=== PATIENT | male | born 1965 | race African-American/Black ===

== ENCOUNTER 2018-04-25 11:06 | Inpatient (IN) | payer OTHER ==
[2018-04-25 11:41] VITALS: BMI 26.1
--- NOTE | 2018-04-25 12:14 | HP ---
CIWA Score - CIWA Score Nausea/Vomitin Muscle Tremors: 2 Anxiety: 2 Agitation: 2 Paroxysmal Sweats: 1-Minimal Palms Moist Orientation: 0-Oriented Tacttile Disturbances: 1-Very Mild Itch/Numbness Auditory Disturbances: 1-Very Mild Visual Disturbances: 1-Very Mild Sensitivity Headache: 2-Mild CIWA-Ar Total Score: 14 Admission ROS BHS - HPI Chief Complaint: i need help to stop drinking alcohol,marijuana,k2 Allergies/Adverse Reactions: Allergies Allergy/AdvReac Type Severity Reaction Status Date / Time No Known Allergies Allergy Verified 04/25/18 11:53 History of Present Illness: this 53 years old male with alcohol,marijuana,k2,seeking detox,withdrawal symptom,last detox 2013 [place] syncope alcohol related gerd anxiety and depression nicotine dependence weight loss abrasion both knees frequent fall Exam Limitations: No Limitations - Ebola screening Have you traveled outside of the country in the last 21 days: No Have you had contact with anyone from an Ebola affected area: No Have you been sick,other than usual withdrawal symptoms: No Do you have a fever: No - Review of Systems Constitutional: Malaise, Night Sweats, Changes in sleep, Weakness, Unintentional Wgt. Loss EENT: reports: Nose Congestion Respiratory: reports: No Symptoms reported Cardiac: reports: No Symptoms Reported GI: reports: Nausea, Poor Appetite, Abdominal cramping : reports: No Symptoms Reported Musculoskeletal: reports: Back Pain, Muscle Pain Integumentary: reports: Dryness Neuro: reports: Headache, Tremors Endocrine: reports: No Symptoms Reported Hematology: reports: No Symptoms Reported Psychiatric: reports: No Sypmtoms Reported, Judgement Intact, Mood/Affect Appropiate, Depressed Other Systems: Reviewed and Negative Patient History - Patient Medical History Hx Anemia: No Hx Asthma: No Hx Chronic Obstructive Pulmonary Disease (COPD): No Hx Cancer: No Hx Cardiac Disorders: No Hx Congestive Heart Failure: No Hx Hypertension: No Hx Hypercholesterolemia: No Hx Pacemaker: No HX Cerebrovascular Accident: No Hx Seizures: No Hx Dementia: No Hx Diabetes: No Hx Gastrointestinal Disorders: Yes (Acid reflux) Hx Liver Disease: No Hx Genitourinary Disorders: No Hx Sexually Transmitted Disorders: No Hx Renal Disease (ESRD): No Hx Thyroid Disease: No Hx Human Immunodeficiency Virus (HIV): No (last 04/16/18) Hx Hepatitis C: No Hx Depression: Yes (anxiety) Hx Suicide Attempt: No Hx Bipolar Disorder: No Hx Schizophrenia: No Other Medical History: no suicidal,no homicidal - Patient Surgical History Past Surgical History: No - PPD History Previous Implant?: Yes Documented Results: Positive w/o proof Implanted On Prior [facility] Admission?: No PPD to be Administered?: No - Smoking Cessation Smoking history: Current every day smoker Have you smoked in the past 12 months: Yes Aproximately how many cigarettes per day: 10 Hx Chewing Tobacco Use: No Initiated information on smoking cessation: Yes 'Breaking Loose' booklet given: 04/25/18 - Substance & Tx. History Hx Alcohol Use: Yes Hx Substance Use: Yes Substance Use Type: Alcohol, Cocaine, Marijuana - Substances Abused Alcohol Route: Oral Frequency: Daily Amount used: 5 pints vodka Age of first use: 10 Date of Last Use: 04/24/18 Cocaine Route: Smoking Frequency: Daily Amount used: $40 Age of first use: 18 Date of Last Use: 04/24/18 Marijuana/Hashish Route: Smoking Frequency: Daily Amount used: 1 bag Age of first use: 10 Date of Last Use: 04/24/18 k2 Route: Smoking Frequency: Daily Amount used: 2-3 blunts Age of first use: 51 Date of Last Use: 04/24/18 Family Disease History - Family Disease History Family Disease History: CA: Brother (dsa,alcohol,bone ), Other: Mother (alcohol, sober), Brother Admission Physical Exam BHS - Vital Signs Vital Signs: Vital Signs - 24 hr 04/25/18 11:38 Temperature 96.4 F L Pulse Rate 76 Respiratory 20 Rate Blood Pressure 131/75 - Physical General Appearance: Yes: Moderate Distress, Tremorous, Irritable, Sweating, Anxious HEENTM: Yes: Normal ENT Inspection, BLESSING, Pharynx Normal Respiratory: Yes: Lungs Clear, Normal Breath Sounds, No Respiratory Distress Neck: Yes: Within Normal Limits, Supple, Trachea in good position Breast: Yes: Within Normal Limits Cardiology: Yes: Within Normal Limits, Regular Rate, S1, S2 Abdominal: Yes: Within Normal Limits, Normal Bowel Sounds, Non Tender, Soft Genitourinary: Yes: Within Normal Limits Musculoskeletal: Yes: Back pain, Muscle Pain Extremities: Yes: Tremors Neurological: Yes: back sewer II-XII NML intact, Alert, Motor Strength 5/5 Integumentary: Yes: Dry (abrasion both knees) Lymphatic: Yes: Within Normal Limits - Diagnostic (1) Alcohol dependence with uncomplicated withdrawal Current Visit: Yes Status: Acute (2) Cocaine dependence Current Visit: No Status: Acute (3) Cannabis dependence Current Visit: Yes Status: Acute (4) Syncope Current Visit: Yes Status: Acute (5) Frequent falls Current Visit: Yes Status: Acute (6) Abrasion Current Visit: Yes Status: Acute (7) Anxiety and depression Current Visit: Yes Status: Acute Cleared for Admission [facility] - Detox or Rehab [facility] Level of Care: Medically Managed Detox Regimen/Protocol: Librium [facility] Breath Alcohol Content Breath Alcohol Content: 0 Urine Drug Screen - Results Drug Screen Negative: No Urine Drug Screen Results: THC-Marijuana, TONY-Cocaine
[2018-04-25] MEDS ORDERED: MAG HYDROX/AL HYDROX/SIMETH 30 ML UNIT-DOSE CUP PO PRN (12:29)
[2018-04-25] MEDS ORDERED: NICOTINE POLACRILEX 2 MG GUM BUC PRN (12:29)
[2018-04-25] MEDS ORDERED: LOPERAMIDE HCL 2 MG CAPSULE PO PRN (12:29)
[2018-04-25] MEDS ORDERED: MAGNESIUM HYDROX 2400MG/30ML ORAL SUSPENSION 30 ML CUP PO PRN (12:29)
[2018-04-25] MEDS ORDERED: hydrOXYzine PAMOATE 25 MG CAPSULE (FP) PO PRN (12:29)
[2018-04-25] MEDS ORDERED: chlordiazePOXIDE HCL 25 MG CAPSULE PO PRN (12:29)
[2018-04-25] MEDS ORDERED: P-EPHED 60MG/TRIPROLIDI 2.5MG TABLET PO PRN (12:29)
[2018-04-25] MEDS ORDERED: guaiFENesin/D-METHORPHAN HB 10 ML UNIT-DOSE CUPS PO PRN (12:29)
[2018-04-25] MEDS ORDERED: ACETAMINOPHEN 325 MG TABLET (FP) PO PRN (12:29)
[2018-04-25] MEDS ORDERED: MAGNESIUM CITRATE 300 ML BOTTLE PO PRN (12:29)
[2018-04-25] MEDS ORDERED: MENTHOL/PHENOL 1 EACH UD MM PRN (12:29)
[2018-04-25] MEDS: NICOTINE 21 MG/24 HOURS TOPICAL PATCH TD SCH (13:35)
--- NOTE | 2018-04-25 15:38 | EKG ---
Test Reason : Blood Pressure : / mmHG Vent. Rate : 078 BPM Atrial Rate : 078 BPM P-R Int : 150 ms QRS Dur : 084 ms QT Int : 390 ms P-R-T Axes : 057 -48 044 degrees QTc Int : 444 ms SINUS RHYTHM WITH OCCASIONAL PREMATURE VENTRICULAR COMPLEXES LEFT ANTERIOR FASCICULAR BLOCK ABNORMAL ECG NO PREVIOUS ECGS AVAILABLE Confirmed by ELISA WAY MD ([id number]) on 04/25/2018 3:37:45 PM Referred By: Confirmed By:ELISA WAY MD
[2018-04-25] MEDS: chlordiazePOXIDE HCL 25 MG CAPSULE PO SCH ×2 (17:05→22:59)
[2018-04-25 19:29] LABS: URINE APPEARANCE CLEAR; URINE BILIRUBIN NEGATIVE (<2.0 mg/dL); URINE COLOR DKYELLOW; URINE GLUCOSE (UA) NEGATIVE (NEGATIVE); URINE KETONE NEGATIVE (NEGATIVE); URINE LEUK ESTERASE NEGATIVE (NEGATIVE); URINE NITRITE NEGATIVE (NEGATIVE); URINE PROTEIN 1+ (NEGATIVE); URINE UROBILINOGEN 4.0 E.U/dl mg/dL (0.2-1.0)
[2018-04-25 19:30] LABS: EPI CELLS RARE /HPF (FEW); URINE MUCUS MANY
[2018-04-25] MEDS: IBUPROFEN 400 MG TABLET (FP) PO PRN (20:34)
[2018-04-25] MEDS ORDERED: MELATONIN 5 MG TABLETS PO PRN (22:00)
[2018-04-25] MEDS: THIAMINE HCL 100 MG TABLET (FP) PO SCH (22:59)
[2018-04-26] MEDS: chlordiazePOXIDE HCL 25 MG CAPSULE PO SCH ×4 (05:43→22:32)
[2018-04-26] MEDS ORDERED: ALBUTEROL SO4 2.5/IPRATROPIUM 0.5 INH SOL 3 ML VIAL.NEB. NEB ONE (07:00)
[2018-04-26] MEDS ORDERED: BACITRACIN 0.9 GM PACKET TP SCH (10:00)
[2018-04-26] MEDS ORDERED: PANTOPRAZOLE 20 MG TABLET (FP) PO SCH (10:00)
[2018-04-26] MEDS ORDERED: PRENATAL VITAMINS W/ FOLIC ACID TABLET (FP) PO SCH (10:00)
[2018-04-26 10:22] LABS: ALBUMIN 3.8 g/dl (3.4-5.0); ALK PHOS 98 U/L (45-117); ANION GAP 5 MMOL/L (8-16); BILIRUBIN,TOTAL 0.4 mg/dL (0.2-1); BLOOD UREA NITROGEN 10 mg/dL (7-18); CALCIUM 9.9 mg/dL (8.5-10.1); CHLORIDE 108 mmol/L (98-107); CO2 28 mmol/L (21-32); GLUCOSE,RANDOM 124 mg/dL (74-106); POTASSIUM 4.2 mmol/L (3.5-5.1); SGOT/AST 44 U/L (15-37); SGPT/ALT 46 U/L (13-61); SODIUM 141 mmol/L (136-145); TOT PROT 7.7 g/dl (6.4-8.2)
[2018-04-26 10:25] LABS: HEMATOCRIT 41.8 % (35.4-49); HEMOGLOBIN 12.9 GM/dL (11.7-16.9); MCH 22.9 pg (25.7-33.7); MCHC 30.8 g/dl (32.0-35.9); MEAN CELL VOLUME 74.5 fl (80-96); MEAN PLT VOLUME 9.6 fl (7.5-11.1); PLATELET COUNT 340 K/MM3 (134-434); RBC 5.61 M/mm3 (4.00-5.60); RDW 17.8 % (11.9-15.9)
[2018-04-26] MEDS: NICOTINE 21 MG/24 HOURS TOPICAL PATCH TD SCH (10:50)
--- NOTE | 2018-04-26 14:46 | PN ---
[facility] CIWA - CIWA Score Nausea/Vomitin Muscle Tremors: 4-Moderate,w/Arms Extend Anxiety: 4-Mod. Anxious/Guarded Agitation: 4-Moderately Restless Paroxysmal Sweats: 3 Orientation: 0-Oriented Tacttile Disturbances: 0-None Auditory Disturbances: 0-None Visual Disturbances: 0-None Headache: 0-None Present CIWA-Ar Total Score: 17 BHS Progress Note (SOAP) Subjective: Dry mouth, nasal stuffiness, body ache, interrupted sleep Objective: 04/26/18 14:42 Last Vital Signs Temp Pulse Resp BP Pulse Ox 97.9 F 60 17 124/78 04/26/18 09:43 04/26/18 09:43 04/26/18 09:43 04/26/18 09:43 Laboratory Tests 04/25/18 04/26/18 04/26/18 14:10 06:00 06:00 WBC 7.0 RBC 5.61 H Hgb 12.9 Hct 41.8 MCV 74.5 L MCH 22.9 L MCHC 30.8 L RDW 17.8 H Plt Count 340 MPV 9.6 Sodium 141 Potassium 4.2 Chloride 108 H Carbon Dioxide 28 Anion Gap 5 L BUN 10 Creatinine 1.0 Creat Clearance w eGFR > 60 Random Glucose 124 H Calcium 9.9 Total Bilirubin 0.4 AST 44 H ALT 46 Alkaline Phosphatase 98 Total Protein 7.7 Albumin 3.8 Urine Color Dkyellow Urine Appearance Clear Urine pH 5.0 Ur Specific [place] 1.030 Urine Protein 1+ H Urine Glucose (UA) Negative Urine Ketones Negative Urine Blood Negative Urine Nitrite Negative Urine Bilirubin Negative Urine Urobilinogen 4.0 e.u/dl Ur Leukocyte Esterase Negative Urine WBC (Auto) 2 Urine RBC (Auto) 1 Ur Epithelial Cells Rare Urine Mucus Many RPR Titer 04/26/18 06:00 WBC RBC Hgb Hct MCV MCH MCHC RDW Plt Count MPV Sodium Potassium Chloride Carbon Dioxide Anion Gap BUN Creatinine Creat Clearance w eGFR Random Glucose Calcium Total Bilirubin AST ALT Alkaline Phosphatase Total Protein Albumin Urine Color Urine Appearance Urine pH Ur Specific [place] Urine Protein Urine Glucose (UA) Urine Ketones Urine Blood Urine Nitrite Urine Bilirubin Urine Urobilinogen Ur Leukocyte Esterase Urine WBC (Auto) Urine RBC (Auto) Ur Epithelial Cells Urine Mucus RPR Titer Nonreactive Labs reviewed: abnormal UA Assessment: 04/26/18 14:44 Withdrawal symptoms Noted with abnormal UA Plan: Continue detox Abnormal UA: encouraged PO water intake, repeat UA
[2018-04-26] MEDS: IBUPROFEN 400 MG TABLET (FP) PO PRN (15:53)
--- NOTE | 2018-04-26 16:10 | CONSULT ---
[facility] Psychiatric Consult - Data Date of interview: 04/26/18 Admission source: [facility] Identifying data: First admission to [facility] for this 53 y/o AA male, seeking detoxification treatment. Substances of abuse : cannabis (K2),alcohol,cocaine and nicotine. Patient is single without dependents,domiciled,unemployed and supported by relatives. Substance Abuse History: Discussed with the patient in this interview. Mr Luis admits to an enduring history of substance use disorder as depicted in current [facility] report drawn on admission. Details as folows : Smoking history: Current every day smoker. Have you smoked in the past 12 months: Yes. Aproximately how many cigarettes per day: 10. Hx Chewing Tobacco Use: No. Initiated information on smoking cessation: Yes. 'Breaking Loose' booklet given : 04/25/18. - Substance & Tx. History. Hx Alcohol Use: Yes. Hx Substance Use : Yes. Substance Use Type: Alcohol, Cocaine, Marijuana. - Substances Abused. Alcohol. Route: Oral. Frequency: Daily. Amount used: 5 pints vodka. Age of first use: 10. Date of Last Use: 04/24/18. Cocaine. Route: Smoking. Frequency: Daily. Amount used: $40. Age of first use: 18. Date of Last Use: 04/24/18. Marijuana/Hashish. Route: Smoking. Frequency: Daily. Amount used: 1 bag. Age of first use: 10. Date of Last Use: 04/24/18. k2. Route : Smoking. Frequency: Daily. Amount used: 2-3 blunts. Age of first use: 51. Date of Last Use: 04/24/18 Medical History: GERD and chronic lumbar pain. Otherwise, the patient endorses good general health. Psychiatric History: Patient denies. Physical/Sexual Abuse/Trauma History: Patient denies. Additional Comment: Urine Drug Screen Results: THC-Marijuana, TONY-Cocaine.Noted. Mental Status Exam - Mental Status Exam Alert and Oriented to: Time, Place, Person Cognitive Function: Good Patient Appearance: Well Groomed Mood: Hopeful, Euthymic Affect: Appropriate, Normal Range Patient Behavior: Cooperative Speech Pattern: Clear Voice Loudness: Normal Thought Process: Intact, Goal Oriented Thought Disorder: Not Present Hallucinations: Denies Suicidal Ideation: Denies Homicidal Ideation: Denies Insight/Judgement: Poor Sleep: Well Appetite: Good Muscle strength/Tone: Normal Gait/Station: Normal Psychiatric Findings - Problem List ([place] 1, 2,3) (1) Alcohol dependence with uncomplicated withdrawal Current Visit: Yes Status: Acute (2) Cannabis dependence Current Visit: Yes Status: Acute (3) Cocaine dependence Current Visit: Yes Status: Acute (4) Nicotine dependence Current Visit: Yes Status: Acute - Initial Treatment Plan Initial Treatment Plan: Psychoeducation.Sleep hygiene. Detoxification in progress.Support, group + cognitive theraapy.Observation.
[2018-04-26] MEDS: THIAMINE HCL 100 MG TABLET (FP) PO SCH (22:31)
[2018-04-27] MEDS: chlordiazePOXIDE HCL 25 MG CAPSULE PO SCH (06:24)
[2018-04-27 06:43] VITALS: BP 117/76; PULSE 81; TEMP 97.6
[2018-04-27 10:45] LABS: URINE APPEARANCE CLEAR; URINE BILIRUBIN NEGATIVE (<2.0 mg/dL); URINE COLOR LTYELLOW; URINE GLUCOSE (UA) NEGATIVE (NEGATIVE); URINE KETONE NEGATIVE (NEGATIVE); URINE LEUK ESTERASE NEGATIVE (NEGATIVE); URINE NITRITE NEGATIVE (NEGATIVE); URINE PROTEIN NEGATIVE (NEGATIVE); URINE UROBILINOGEN NEGATIVE mg/dL (0.2-1.0)
--- NOTE | 2018-04-27 14:03 | DS ---
[facility] Detox Discharge Summary Admission Date: 04/25/18 Discharge Date: 04/27/18 - History Present History: Alcohol Dependence - Physical Exam Results Vital Signs: Vital Signs Temperature 97.6 F 04/27/18 06:42 Pulse Rate 81 04/27/18 06:42 Respiratory Rate 18 04/27/18 06:42 Blood Pressure 117/76 04/27/18 06:42 O2 Sat by Pulse Oximetry (%) Pertinent Admission Physical Exam Findings: PATIENT REQUESTED TO SIGN OUT AMA STATING HE HAS A FAMILY EVENT TO ATTEND. PATIENT ENCOURAGED TO COMPLETE DETOX AND EXPLAINED RISK FACTORS OF RELAPSE AND WITH SIGNING OUT AMA. PATIENT REFUSED TO STAY IN DETOX. PATIENT ADVISED TO ATTEND GROUP MEETINGS TO PREVENT RELAPSE AND TO SEEK MEDICAL ATTENTION IF WITHDRAWAL SX OCCUR. - Medication Discharge Medications: Ambulatory Orders Omeprazole Magnesium [Prilosec Otc] 20 mg PO DAILY 04/25/18 - AMA Did Patient Leave Against Medical Advice: Yes
[2018-04-27] MEDS ORDERED: chlordiazePOXIDE 5 MG CAPSULE PO SCH (17:00)
[2018-04-28] MEDS ORDERED: chlordiazePOXIDE HCL 10 MG CAPSULE PO SCH (17:00)
== END 2018-04-27 10:04 | disposition left against medical advice (07) | DRG 770 ==
LOC: YASAS 11:06 → Y3N 12:35
PROC: HZ2ZZZZ Detoxification Services for Substance Abuse Treatment (ICD-10-PCS; principal; 2018-04-25)
DX: F10.230 Alcohol dependence with withdrawal, uncomplicated (principal); F14.20 Cocaine dependence, uncomplicated; F17.210 Nicotine dependence, cigarettes, uncomplicated; F19.280 Other psychoactive substance dependence with psychoactive substance-induced anxiety disorder; F41.8 Other specified anxiety disorders; F32.9 Major depressive disorder, single episode, unspecified; K21.9 Gastro-esophageal reflux disease without esophagitis; R76.11 Nonspecific reaction to tuberculin skin test without active tuberculosis; R82.90 Unspecified abnormal findings in urine; R55 Syncope and collapse; S80.212A Abrasion, left knee, initial encounter; S80.211A Abrasion, right knee, initial encounter; Z91.81 History of falling
CPT/HCPCS: 36415; 71046-TC-FY; 80053; 81003; 81015; 85027; 86593; 93005; 93010

== ENCOUNTER 2019-03-07 13:29 | Inpatient (IN) | payer OTHER ==
[2019-03-07 14:24] VITALS: BMI 25.0
--- NOTE | 2019-03-07 16:59 | HP ---
CIWA Score Nausea/Vomitin Muscle Tremors: 4-Moderate,w/Arms Extend Anxiety: 2 Agitation: 1-Slight > Activity Paroxysmal Sweats: 1-Minimal Palms Moist Orientation: 0-Oriented Tacttile Disturbances: 0-None Auditory Disturbances: 0-None Visual Disturbances: 0-None Headache: 2-Mild CIWA-Ar Total Score: 13 - Admission Criteria [facility] Guidelines: Admission for Medically Managed Detox: Requires at least one of the followin. CIWA greater than 12 2. Seizures within the past 24 hours 3. Delirium tremens within the past 24 hours 4. Hallucinations within the past 24 hours 5. Acute intervention needed for co occurring medical disorder 6. Acute intervention needed for co occurring psychiatric disorder 7. Severe withdrawal that cannot be handled at a lower level of care (continued vomiting, continued diarrhea, abnormal vital signs) requiring intravenous medication and/or fluids 8. Admission ROS [facility] Chief Complaint: detox EtOH, K2, cocaine Allergies/Adverse Reactions: Allergies Allergy/AdvReac Type Severity Reaction Status Date / Time No Known Allergies Allergy Verified 03/07/19 14:17 History of Present Illness: 53M w/ chronic intermittently BLE edema presenting for detox for EtOH, K2, crack. Last drank a bottle of vodka and a few beers at ~2300 last night. Drinks 4pints + 6pack daily. Started drinking at 11y/o. H/o seizures x3, a few years prior. Blacked outed x10-15. Had CTH([place]) neg a few weeks prior. Denies cirrhosis. Had bloody emesis w/ coffee grounds 1week ago, evaluated at [place] who recommended outpt EGD and colonscopy. Had scleral icterus a few years prior. Smokes K2/MJ [id number] daily. Smokes $70crack, 3x/week. Denies IVDU. [place], [place] [address] [place] 10-15cig daily. Imprisoned a couple years prior for drug-related charges. No h/o methadone or suboxone detox programs. - Ebola screening Have you traveled outside of the country in the last 21 days: No (N) Have you had contact with anyone from an Ebola affected area: No Do you have a fever: No - Review of Systems EENT: denies: Blurred Vision, Double Vision, Nose Congestion Respiratory: denies: Cough, Orthopnea, Shortness of Breath Cardiac: reports: Edema (chronic BLE edema). denies: Chest Pain, Irregular Heart Rate, Chest Tightness GI: reports: Nausea, Rectal Bleeding (some blood on feces), Vomiting. denies: Constipated, Diarrhea : denies: Burning, Frequency, Urgency Musculoskeletal: denies: Back Pain Integumentary: denies: Dryness, Erythema, Pruritus Neuro: reports: Headache, Seizure (h/o). denies: Numbness, Tingling, Dizziness Endocrine: denies: Flushing, Increased Urine Psychiatric: reports: Orientated x3 Patient History - Patient Medical History Hx Anemia: No Hx Asthma: No Hx Chronic Obstructive Pulmonary Disease (COPD): No Hx Cancer: No Hx Cardiac Disorders: No Hx Congestive Heart Failure: No Hx Hypertension: No Hx Hypercholesterolemia: No Hx Pacemaker: No HX Cerebrovascular Accident: No Hx Seizures: No Hx Dementia: No Hx Diabetes: No Hx Gastrointestinal Disorders: Yes (Acid reflux) Hx Liver Disease: No Hx Genitourinary Disorders: No Hx Sexually Transmitted Disorders: No Hx Renal Disease (ESRD): No Hx Thyroid Disease: No Hx Human Immunodeficiency Virus (HIV): No (last 04/16/18) Hx Hepatitis C: No Hx Depression: Yes (anxiety) Hx Suicide Attempt: No Hx Bipolar Disorder: No Hx Schizophrenia: No - Patient Surgical History Past Surgical History: No - Smoking Cessation Smoking history: Current every day smoker Have you smoked in the past 12 months: Yes Aproximately how many cigarettes per day: 10 Hx Chewing Tobacco Use: No Initiated information on smoking cessation: No - Substance & Tx. History Hx Alcohol Use: Yes Hx Substance Use: Yes Substance Use Type: Alcohol, Cocaine, Marijuana - Substances abused Alcohol Substance route: Oral Frequency: Daily Amount used: 4 BOTTLES OF VODKA, Age of first use: 10 Date of last use: 03/07/19 Cocaine Substance route: Smoking Frequency: 3-6 times per week Amount used: $70 Age of first use: 23 Date of last use: 03/05/19 K2/Spice Substance route: Smoking Frequency: Daily Amount used: 10 BLUNTS Age of first use: 48 Date of last use: 03/07/19 Family Disease History - Family Disease History Family Disease History: CA: Brother (dsa,alcohol,bone, cirrhossis), Other: Mother (alcohol,sober), Brother Admission Physical Exam [facility] - Vital Signs Vital Signs: Vital Signs - 24 hr 03/07/19 14:16 Temperature 97.6 F Pulse Rate 80 Respiratory 20 Rate Blood Pressure 115/76 - Physical General Appearance: Yes: Tremorous, Irritable, Anxious. No: No Apparent Distress HEENTM: Yes: Normocephalic. No: Pale Conjunctivae R, Pale Conjunctivae L, Scleral Ictenus R, Scleral Ictenus L Respiratory: Yes: Chest Non-Tender, Lungs Clear, No Accessory Muscle Use. No: Decreased Breath Sounds, Accessory Muscle Use, Stridor, Wheezing, Expiration Neck: Yes: Supple, Trachea in good position Cardiology: Yes: Regular Rhythm, Regular Rate. No: Irregularly Irregular Abdominal: Yes: Non Tender, Soft. No: Distended, Guarding, Rebound, Tenderness Extremities: Yes: Swelling (1+pitting edema to knees B/L) Neurological: Yes: Fully Oriented, Alert Integumentary: Yes: Dry, Warm Cleared for Admission [facility] - Detox or Rehab [facility] Level of Care: Medically Managed Breathalyzer - Breathalyzer Breathalyzer: 0 Urine Drug Screen - Test Device Lot number: [id number] Expiration date: 12/06/20 - Control Is test valid?: Yes - Results Drug screen NEGATIVE: No Urine drug screen results: THC-Marijuana, TONY-Cocaine Inpatient Rehab Admission - Rehab Decision to Admit Inpatient rehab admission?: No
[2019-03-07] MEDS ORDERED: hydrOXYzine PAMOATE 25 MG CAPSULE (FP) PO PRN (17:25)
[2019-03-07] MEDS ORDERED: BISMUTH SUBSALICYLATE 524 MG/30 ML UD PO PRN (17:25)
[2019-03-07] MEDS ORDERED: MELATONIN 5 MG TABLETS PO PRN (17:25)
[2019-03-07] MEDS ORDERED: MENTHOL/PHENOL 1 EACH UD MM PRN (17:25)
[2019-03-07] MEDS ORDERED: MAGNESIUM CITRATE 300 ML BOTTLE PO PRN (17:25)
[2019-03-07] MEDS ORDERED: ACETAMINOPHEN 325 MG TABLET (FP) PO PRN ×2 (17:25)
[2019-03-07] MEDS ORDERED: MAG HYDROX/AL HYDROX/SIMETH 30 ML UNIT-DOSE CUP PO PRN (17:25)
[2019-03-07] MEDS ORDERED: MAGNESIUM HYDROX 2400MG/30ML ORAL SUSPENSION 30 ML CUP PO PRN (17:25)
[2019-03-07] MEDS ORDERED: NICOTINE POLACRILEX 2 MG GUM BUC PRN (17:25)
[2019-03-07] MEDS ORDERED: IBUPROFEN 400 MG TABLET (FP) PO PRN (17:25)
--- NOTE | 2019-03-07 17:25 | PN ---
Teaching Attending Note Name of Resident: Senthil Fung ATTENDING PHYSICIAN STATEMENT I saw and evaluated the patient. I reviewed the resident's note and discussed the case with the resident. I agree with the resident's findings and plan as documented. SUBJECTIVE: pt here requesting detox from etoh use , reports 4 pints & 1-x 6pk /day x 20 years , longest sobriety 2 years while incarcerated 2005 , latest use yesterday , current syymptoms nausea , tremors , headache , abd cramps , anxiety , mild UE tremors . + blackouts , + w/d seizures , + hematemesis evaluated 1 week ago @ [place] , denies other episodes since , reports some red blood in stool yesterday , was recommeded @ [place] to go for outpt EGD / colonoscopy which pt is reporting he is planning to attend. cannabis : K2/MJ [id number] daily. Smokes $70 crack cocaine 3x/week. Denies IVDU. denies heroin , denies other illicits . SHX : parole until April 2019 drug-related charges , homeless , unemployed , utox : thc, jose l PMHX : LE cellulitis ( chronic ) , denies PSHX / Psych hx . OBJECTIVE: CIWA 13 , moderate distress , jayden LE edema =1 pitting L > R . Vital Signs - 24 hr 03/07/19 14:16 Temperature 97.6 F Pulse Rate 80 Respiratory 20 Rate Blood Pressure 115/76 ASSESSMENT AND PLAN: AUD - Librium detox protocol . Problem List - Problems (1) Alcohol dependence with uncomplicated withdrawal Code(s): F10.230 - ALCOHOL DEPENDENCE WITH WITHDRAWAL, UNCOMPLICATED (2) Cannabis dependence Code(s): F12.20 - CANNABIS DEPENDENCE, UNCOMPLICATED (3) Cocaine dependence Code(s): F14.20 - COCAINE DEPENDENCE, UNCOMPLICATED Qualifiers: Substance use status: uncomplicated Qualified Code(s): F14.20 - Cocaine dependence, uncomplicated (4) Nicotine dependence Code(s): F17.200 - NICOTINE DEPENDENCE, UNSPECIFIED, UNCOMPLICATED Qualifiers: Nicotine product type: cigarettes
[2019-03-07] MEDS ORDERED: chlordiazePOXIDE HCL 25 MG CAPSULE PO PRN (17:27)
[2019-03-07] MEDS: PANTOPRAZOLE 20 MG TABLET (FP) PO SCH (18:12)
[2019-03-07] MEDS ORDERED: chlordiazePOXIDE HCL 25 MG CAPSULE PO ONE (18:15)
[2019-03-07] MEDS: chlordiazePOXIDE HCL 25 MG CAPSULE PO SCH (22:28)
[2019-03-07] MEDS: THIAMINE HCL 100 MG TABLET (FP) PO SCH (22:28)
[2019-03-08] MEDS: chlordiazePOXIDE HCL 25 MG CAPSULE PO SCH ×4 (06:05→22:27)
[2019-03-08 09:27] LABS: ALBUMIN 3.1 g/dl (3.4-5.0); BILIRUBIN,TOTAL 0.3 mg/dL (0.2-1); BLOOD UREA NITROGEN 6.2 mg/dL (7-18); CREATININE 0.8 mg/dL (0.55-1.3); POTASSIUM 4.2 mmol/L (3.5-5.1); TOT PROT 6.4 g/dl (6.4-8.2)
[2019-03-08 09:33] LABS: HEMATOCRIT 36.8 % (35.4-49); HEMOGLOBIN 11.7 GM/dL (11.7-16.9); MCH 23.6 pg (25.7-33.7); MCHC 31.7 g/dl (32.0-35.9); MEAN CELL VOLUME 74.6 fl (80-96); MEAN PLT VOLUME 9.4 fl (7.5-11.1); PLATELET COUNT 379 K/MM3 (134-434); RBC 4.94 M/mm3 (4.00-5.60); RDW 18.6 % (11.9-15.9); WHITE BLOOD COUNT 4.8 K/mm3 (4.0-10.0)
[2019-03-08] MEDS: PRENATAL VITAMINS W/ FOLIC ACID TABLET (FP) PO SCH (10:12)
[2019-03-08] MEDS: PANTOPRAZOLE 20 MG TABLET (FP) PO SCH (10:12)
--- NOTE | 2019-03-08 15:16 | PN ---
S CIWA - CIWA Score Nausea/Vomitin-No Nausea/No Vomiting Muscle Tremors: 4-Moderate,w/Arms Extend Anxiety: 4-Mod. Anxious/Guarded Agitation: 3 Paroxysmal Sweats: 1-Minimal Palms Moist Orientation: 0-Oriented Tacttile Disturbances: 0-None Auditory Disturbances: 0-None Visual Disturbances: 0-None Headache: 0-None Present CIWA-Ar Total Score: 12 [facility] Progress Note (SOAP) Subjective: Pt with hx of alcohol and crack dependence on librium detox taper. C/o anxiety, slight tremors,chills and intermittent sleep. Objective: 03/08/19 15:15 Vital Signs - 24 hr 03/07/19 03/08/19 03/08/19 18:11 00:30 03:30 Temperature 97.3 F L Pulse Rate 65 Respiratory 18 18 18 Rate Blood Pressure 136/82 03/08/19 03/08/19 03/08/19 06:05 09:07 13:03 Temperature 99 F 98.2 F 98.3 F Pulse Rate 64 68 62 Respiratory 16 18 18 Rate Blood Pressure 124/77 119/70 122/80 03/08/19 13:14 Temperature 98.3 F Pulse Rate 62 Respiratory 18 Rate Blood Pressure 122/80 Laboratory Tests 03/08/19 03/08/19 03/08/19 07:30 07:30 07:30 WBC 4.8 RBC 4.94 Hgb 11.7 Hct 36.8 MCV 74.6 L MCH 23.6 L MCHC 31.7 L RDW 18.6 H Plt Count 379 MPV 9.4 Sodium 141 Potassium 4.2 Chloride 109 H Carbon Dioxide 28 Anion Gap 4 L BUN 6.2 L Creatinine 0.8 Est GFR (CKD-EPI)AfAm 116.56 Est GFR (CKD-EPI)NonAf 100.57 Random Glucose 90 Calcium 9.0 Total Bilirubin 0.3 AST 14 L ALT 18 Alkaline Phosphatase 83 Total Protein 6.4 Albumin 3.1 L RPR Titer Nonreactive Assessment: 03/08/19 15:15 withdrawal sx Plan: continue detox librium taper increase po fluids
[2019-03-08] MEDS: THIAMINE HCL 100 MG TABLET (FP) PO SCH (22:27)
[2019-03-09] MEDS: chlordiazePOXIDE HCL 25 MG CAPSULE PO SCH ×4 (05:19→23:11)
[2019-03-09] MEDS: PRENATAL VITAMINS W/ FOLIC ACID TABLET (FP) PO SCH (10:12)
[2019-03-09] MEDS: PANTOPRAZOLE 20 MG TABLET (FP) PO SCH (10:13)
--- NOTE | 2019-03-09 11:11 | PN ---
[facility] CIWA - CIWA Score Nausea/Vomitin-No Nausea/No Vomiting Muscle Tremors: 3 Anxiety: 3 Agitation: 3 Paroxysmal Sweats: 2 Orientation: 0-Oriented Tacttile Disturbances: 0-None Auditory Disturbances: 0-None Visual Disturbances: 0-None Headache: 0-None Present CIWA-Ar Total Score: 11 [facility] Progress Note (SOAP) Subjective: 53 years old male second patient [facility] admission since 2018 was admitted on 03/07/19 for acute alcohol withdrawal sx management doing well with librium detox regimen sweat chill back pain long history of GERD discontinue motrin increase protonix to 40 mg po daily one libirum 25 mg po x 1 at 2pm today Objective: 03/09/19 11:17 Vital Signs Temperature 97.8 F 03/09/19 09:39 Pulse Rate 70 03/09/19 09:39 Respiratory Rate 18 03/09/19 09:39 Blood Pressure 150/99 03/09/19 09:39 O2 Sat by Pulse Oximetry (%) Laboratory Last Values WBC 4.8 K/mm3 (4.0-10.0) 03/08/19 07:30 RBC 4.94 M/mm3 (4.00-5.60) 03/08/19 07:30 Hgb 11.7 GM/dL (11.7-16.9) 03/08/19 07:30 Hct 36.8 % (35.4-49) 03/08/19 07:30 MCV 74.6 fl (80-96) L 03/08/19 07:30 MCH 23.6 pg (25.7-33.7) L 03/08/19 07:30 MCHC 31.7 g/dl (32.0-35.9) L 03/08/19 07:30 RDW 18.6 % (11.9-15.9) H 03/08/19 07:30 Plt Count 379 K/MM3 (134-434) 03/08/19 07:30 MPV 9.4 fl (7.5-11.1) 03/08/19 07:30 Sodium 141 mmol/L (136-145) 03/08/19 07:30 Potassium 4.2 mmol/L (3.5-5.1) 03/08/19 07:30 Chloride 109 mmol/L (98-107) H 03/08/19 07:30 Carbon Dioxide 28 mmol/L (21-32) 03/08/19 07:30 Anion Gap 4 MMOL/L (8-16) L 03/08/19 07:30 BUN 6.2 mg/dL (7-18) L 03/08/19 07:30 Creatinine 0.8 mg/dL (0.55-1.3) 03/08/19 07:30 Est GFR (CKD-EPI)AfAm 116.56 03/08/19 07:30 Est GFR (CKD-EPI)NonAf 100.57 03/08/19 07:30 Random Glucose 90 mg/dL (74-106) 03/08/19 07:30 Calcium 9.0 mg/dL (8.5-10.1) 03/08/19 07:30 Total Bilirubin 0.3 mg/dL (0.2-1) 03/08/19 07:30 AST 14 U/L (15-37) L 03/08/19 07:30 ALT 18 U/L (13-61) 03/08/19 07:30 Alkaline Phosphatase 83 U/L (45-117) 03/08/19 07:30 Total Protein 6.4 g/dl (6.4-8.2) 03/08/19 07:30 Albumin 3.1 g/dl (3.4-5.0) L 03/08/19 07:30 RPR Titer Nonreactive (NONREACTIVE) 03/08/19 07:30 lab noted Assessment: 03/09/19 11:17 alcohol withdrawal sx alert oriented x 3 speech clearly steady gait tolerate food and fluid better today Plan: continue libirum detox regimen
[2019-03-09] MEDS ORDERED: PANTOPRAZOLE 40 MG TABLET (FP) PO SCH (11:14)
[2019-03-09] MEDS ORDERED: chlordiazePOXIDE HCL 25 MG CAPSULE PO ONE (14:00)
[2019-03-09] MEDS: THIAMINE HCL 100 MG TABLET (FP) PO SCH (23:11)
[2019-03-10] MEDS ORDERED: chlordiazePOXIDE HCL 10 MG CAPSULE PO PRN
[2019-03-10] MEDS: chlordiazePOXIDE HCL 10 MG CAPSULE PO SCH ×4 (05:58→22:16)
[2019-03-10] MEDS: PRENATAL VITAMINS W/ FOLIC ACID TABLET (FP) PO SCH (10:05)
--- NOTE | 2019-03-10 10:13 | PN ---
S CIWA - CIWA Score Nausea/Vomitin-No Nausea/No Vomiting Muscle Tremors: 3 Anxiety: 2 Agitation: 2 Paroxysmal Sweats: 2 Orientation: 0-Oriented Tacttile Disturbances: 1-Very Mild Itch/Numbness Auditory Disturbances: 0-None Visual Disturbances: 0-None Headache: 0-None Present CIWA-Ar Total Score: 10 S Progress Note (SOAP) Subjective: 53 years old male admitted on 03/07/19 for alcohol withdrawal sx management doing well with libirum detox regimen long history of psoriasis treated with over the counter cream at home begin eucerin cream Objective: 03/10/19 10:11 Vital Signs Temperature 98.5 F 03/10/19 09:05 Pulse Rate 59 L 03/10/19 09:05 Respiratory Rate 18 03/10/19 09:05 Blood Pressure 124/81 03/10/19 09:05 O2 Sat by Pulse Oximetry (%) Laboratory Last Values WBC 4.8 K/mm3 (4.0-10.0) 03/08/19 07:30 RBC 4.94 M/mm3 (4.00-5.60) 03/08/19 07:30 Hgb 11.7 GM/dL (11.7-16.9) 03/08/19 07:30 Hct 36.8 % (35.4-49) 03/08/19 07:30 MCV 74.6 fl (80-96) L 03/08/19 07:30 MCH 23.6 pg (25.7-33.7) L 03/08/19 07:30 MCHC 31.7 g/dl (32.0-35.9) L 03/08/19 07:30 RDW 18.6 % (11.9-15.9) H 03/08/19 07:30 Plt Count 379 K/MM3 (134-434) 03/08/19 07:30 MPV 9.4 fl (7.5-11.1) 03/08/19 07:30 Sodium 141 mmol/L (136-145) 03/08/19 07:30 Potassium 4.2 mmol/L (3.5-5.1) 03/08/19 07:30 Chloride 109 mmol/L (98-107) H 03/08/19 07:30 Carbon Dioxide 28 mmol/L (21-32) 03/08/19 07:30 Anion Gap 4 MMOL/L (8-16) L 03/08/19 07:30 BUN 6.2 mg/dL (7-18) L 03/08/19 07:30 Creatinine 0.8 mg/dL (0.55-1.3) 03/08/19 07:30 Est GFR (CKD-EPI)AfAm 116.56 03/08/19 07:30 Est GFR (CKD-EPI)NonAf 100.57 03/08/19 07:30 Random Glucose 90 mg/dL (74-106) 03/08/19 07:30 Calcium 9.0 mg/dL (8.5-10.1) 03/08/19 07:30 Total Bilirubin 0.3 mg/dL (0.2-1) 03/08/19 07:30 AST 14 U/L (15-37) L 03/08/19 07:30 ALT 18 U/L (13-61) 03/08/19 07:30 Alkaline Phosphatase 83 U/L (45-117) 03/08/19 07:30 Total Protein 6.4 g/dl (6.4-8.2) 03/08/19 07:30 Albumin 3.1 g/dl (3.4-5.0) L 03/08/19 07:30 RPR Titer Nonreactive (NONREACTIVE) 03/08/19 07:30 lab noted Assessment: 03/10/19 10:11 alcohol withdrawal sx alert oriented x 3 patches lesion dry peeling on both feet legs and elbows no bleeding Plan: continue libirum detox regimen
[2019-03-10] MEDS ORDERED: MINERAL OIL/PETROLAT/WATER TOPICAL CREAM 113 GM JAR TP SCH (10:15)
[2019-03-10] MEDS ORDERED: CYCLOBENZAPRINE HCL 5 MG TABLET PO SCH (20:15)
[2019-03-10] MEDS: THIAMINE HCL 100 MG TABLET (FP) PO SCH (22:16)
[2019-03-11] MEDS ORDERED: chlordiazePOXIDE HCL 10 MG CAPSULE PO SCH (05:00)
[2019-03-11 09:04] VITALS: BP 131/96; PULSE 70; TEMP 98.2
--- NOTE | 2019-03-11 11:15 | DS ---
[facility] Detox Discharge Summary Admission Date: 03/07/19 Discharge Date: 03/11/19 - History Present History: Alcohol Dependence Additional Comments: 53 years old male 2nd patient [facility] [place] admission since 2014 was admitted on 03/07/19 for acute alcohol withdrawal sx management did well with librium detox regimen no complication through out the detox stay alert oriented x 3 cardiac S1S2 regular no chest pain denies dizziness respiratory no wheezing bread ease and even abdomen soft no rebound tenderness extremities full range of motion skin warm and dry Pertinent Past History: psoriasis gerd - Physical Exam Results Vital Signs: Vital Signs Temperature 98.2 F 03/11/19 09:03 Pulse Rate 70 03/11/19 09:03 Respiratory Rate 18 03/11/19 09:03 Blood Pressure 131/96 03/11/19 09:03 O2 Sat by Pulse Oximetry (%) Pertinent Admission Physical Exam Findings: alcohol withdrawal sx Laboratory Last Values WBC 4.8 K/mm3 (4.0-10.0) 03/08/19 07:30 RBC 4.94 M/mm3 (4.00-5.60) 03/08/19 07:30 Hgb 11.7 GM/dL (11.7-16.9) 03/08/19 07:30 Hct 36.8 % (35.4-49) 03/08/19 07:30 MCV 74.6 fl (80-96) L 03/08/19 07:30 MCH 23.6 pg (25.7-33.7) L 03/08/19 07:30 MCHC 31.7 g/dl (32.0-35.9) L 03/08/19 07:30 RDW 18.6 % (11.9-15.9) H 03/08/19 07:30 Plt Count 379 K/MM3 (134-434) 03/08/19 07:30 MPV 9.4 fl (7.5-11.1) 03/08/19 07:30 Sodium 141 mmol/L (136-145) 03/08/19 07:30 Potassium 4.2 mmol/L (3.5-5.1) 03/08/19 07:30 Chloride 109 mmol/L (98-107) H 03/08/19 07:30 Carbon Dioxide 28 mmol/L (21-32) 03/08/19 07:30 Anion Gap 4 MMOL/L (8-16) L 03/08/19 07:30 BUN 6.2 mg/dL (7-18) L 03/08/19 07:30 Creatinine 0.8 mg/dL (0.55-1.3) 03/08/19 07:30 Est GFR (CKD-EPI)AfAm 116.56 03/08/19 07:30 Est GFR (CKD-EPI)NonAf 100.57 03/08/19 07:30 Random Glucose 90 mg/dL (74-106) 03/08/19 07:30 Calcium 9.0 mg/dL (8.5-10.1) 03/08/19 07:30 Total Bilirubin 0.3 mg/dL (0.2-1) 03/08/19 07:30 AST 14 U/L (15-37) L 03/08/19 07:30 ALT 18 U/L (13-61) 03/08/19 07:30 Alkaline Phosphatase 83 U/L (45-117) 03/08/19 07:30 Total Protein 6.4 g/dl (6.4-8.2) 03/08/19 07:30 Albumin 3.1 g/dl (3.4-5.0) L 03/08/19 07:30 RPR Titer Nonreactive (NONREACTIVE) 03/08/19 07:30 lab noted - Treatment Hospital Course: Detox Protocol Followed, Detoxed Safely, Responded well, Discharged Condition Good, Rehab Referral Accepted Patient has Accepted a Rehab Referral to: [facility] - Medication Discharge Medications: Ambulatory Orders Omeprazole Magnesium [Prilosec Otc] 20 mg PO DAILY 04/25/18 - Diagnosis (1) Substance induced mood disorder Status: Suspected (2) Psoriasis Status: Chronic (3) Alcohol dependence with uncomplicated withdrawal Status: Acute (4) GERD (gastroesophageal reflux disease) Status: Chronic Qualifiers: Esophagitis presence: without esophagitis Qualified Code(s): K21.9 - Gastro -esophageal reflux disease without esophagitis (5) PPD positive Status: Resolved (6) Nicotine dependence Status: Acute Qualifiers: Nicotine product type: cigarettes Substance use status: in withdrawal Qualified Code(s): F17.213 - Nicotine dependence, cigarettes, with withdrawal - AMA Did Patient Leave Against Medical Advice: No CIWA Score - CIWA Score Nausea/Vomitin-No Nausea/No Vomiting Muscle Tremors: 2 Anxiety: 1-Mildly Anxious Agitation: 1-Slight > Activity Paroxysmal Sweats: 1-Minimal Palms Moist Orientation: 0-Oriented Tacttile Disturbances: 0-None Auditory Disturbances: 0-None Visual Disturbances: 0-None Headache: 0-None Present CIWA-Ar Total Score: 5
[2019-03-11] MEDS ORDERED: CYCLOBENZAPRINE HCL 5 MG TABLET PO SCH (19:45)
[2019-03-12] MEDS ORDERED: chlordiazePOXIDE HCL 10 MG CAPSULE PO ONE (05:00)
== END 2019-03-11 09:36 | disposition home or self-care (01) | DRG 774 ==
LOC: YASAS 13:29 → Y3N 17:50
PROVIDERS: ADMIT Surgery; ATTEND Surgery
PROC: HZ2ZZZZ Detoxification Services for Substance Abuse Treatment (ICD-10-PCS; principal; 2019-03-07)
DX: F10.230 Alcohol dependence with withdrawal, uncomplicated (principal); F14.20 Cocaine dependence, uncomplicated; F12.20 Cannabis dependence, uncomplicated; F17.200 Nicotine dependence, unspecified, uncomplicated; F41.8 Other specified anxiety disorders; K21.9 Gastro-esophageal reflux disease without esophagitis; L40.9 Psoriasis, unspecified; R76.11 Nonspecific reaction to tuberculin skin test without active tuberculosis
CPT/HCPCS: 36415; 80053; 85027; 86593